=== PATIENT | male | born 1960 | race Caucasian/White ===

== ENCOUNTER 2019-07-06 12:17 | Emergency (ER) | payer OTHER ==
[2019-07-06 12:43] LABS: ABS Basophils 0.1 10^3/ul (0-0.2); ABS Eosinophils 0.2 10^3/ul (0-0.6); ABS Lymphocytes 1.5 10^3/ul (1.0-4.8); ABS Monocytes 0.4 10^3/ul (0-0.8); ABS Neutrophils 3.9 10^3/ul (1.5-7.7); Hematocrit 43 % (42-52); Hemoglobin 15.1 g/dL (14.0-18.0); Lymphocyte % 24.7 %; Mean Corpuscular HGB Conc 36 g/dL (31-36); Mean Corpuscular Hemoglobin 31 pg (27-31); Mean Corpuscular Volume 87 fL (80-94); Platelet Count 171 10^3/uL (150-450); Red Blood Count 4.88 10^6 /uL (4.18-5.48); Red Cell Distribution Width 13 % (10-15); White Blood Count 6.1 10^3/uL (3.5-10.8)
--- OUTSIDE RECORDS SUMMARY | 2019-07-06 12:46 | XMS REPORT | Continuity of Care Document ---
:1960 External Reference #:[id number] Author Name Viry Roberson NP Address [address] [place] [address] Care Team Providers Name Role Phone Enzo Malone MD - Family Medicine Care Team Information Hanger Off Problems Description No Information Available Social History Type Date Description Comments Sex Male Tobacco Use Start: Unknown Never Smoked Cigarettes Smoking Status Reviewed: 04/19/19 Never Smoked Cigarettes ETOH Use Current Alcohol Use - 1-3 Days A Week. Recreational Drug Use Never Used Drugs Allergies, Adverse Reactions, Alerts Active Allergies Reaction Severity Comments Date Cephalosporins 04/19/2019 Penicillin 04/19/2019 sulfa 04/19/2019 Erythromycin 04/19/2019 Medications Active Medications SIG Qnty Indications Ordering Provider Date Aspirin 81 daily Unknown 81mg Tablets Irbesartan 1 by mouth every Unknown 75mg Tablets day Omeprazole 1 by mouth every Unknown 40mg Capsules day Tamsulosin HCL 1 by mouth every Unknown 0.4mg day Capsules Meloxicam 1 by mouth daily Unknown 15mg Tablets as needed with food Trazodone HCL 1 by mouth every Unknown 50mg day Tablets History Medications Oral Appliance rdi of 11.4 Jono Harvey M.D. 06/04/2019 - 06/04/2019 Oral Analgesic Maximum rdi of 11.4 Jono Harvey M.D. 06/04/2019 - 06/04 Strength 20% Gel Immunizations Description No Information Available Vital Signs Date Vital Result Comment 06/04/2019 11:21am Weight 255.00 lb Height 74 inches 6'2" BMI (Body Mass Index) 32.7 kg/m2 BP Systolic 128 mmHg BP Diastolic 78 mmHg Heart Rate 88 /min O2 % BldC Oximetry 97 % Body Temperature 98.2 F Pain Level 0 04/19/2019 2:03pm Weight 255.00 lb Height 74 inches 6'2" BMI (Body Mass Index) 32.7 kg/m2 BP Systolic 143 mmHg BP Diastolic 87 mmHg Heart Rate 78 /min O2 % BldC Oximetry 96 % Body Temperature 97.2 F Felt Score 7 Neck Circumference in inches 17.5 Pain Level 0 Results Description No Information Available Procedures Date Code Description Status 05/16/2019 76936 Sleep Staging 4Or More Para Completed Medical Devices Description No Information Available Encounters Type Date Location Provider Dx Diagnosis Office Visit 06/04/2019 Main Office Viry Roberson G47.33 Obstructive sleep 11:15a WEIGHT CHECKER apnea (adult) (pediatric) Office Visit 04/19/2019 Main Office Shai Esteves M.D R06.83 Snoring 1:30p G47.30 Sleep apnea, unspecified G47.00 Insomnia, unspecified E66.9 Obesity, unspecified Assessments Date Code Description Provider 06/04/2019 G47.33 Obstructive sleep apnea (adult) Viry Roberson NP (pediatric) 05/16/2019 G47.33 Obstructive sleep apnea (adult) Sleep Lab - Shai Esteves MD (pediatric) 04/19/2019 R06.83 Snoring Shai Esteves M.D 04/19/2019 G47.30 Sleep apnea, unspecified Shai Esteves M.D 04/19/2019 G47.00 Insomnia, unspecified Shai Esteves M.D 04/19/2019 E66.9 Obesity, unspecified Shai Esteves M.D Plan of Treatment No Information Available Functional Status Description No Information Available Mental Status Description No Information Available Referrals Refer to Reason for Referral Status Appt Date Jono Harvey M.D. NO AUTH REQ FOR PSG Created [address] [place] [address] [phone]
--- OUTSIDE RECORDS SUMMARY | 2019-07-06 12:46 | XMS REPORT | Continuity of Care Document ---
:1960 External Reference #:[id number] Author Name Viry Roberson NP (transmitted by agent of provider Shonda Vargas) Address [address] [place] [address] Care Team Providers Name Role Phone Enzo Malone MD - Family Medicine Care Team Information Register Of Deeds Problems Description No Information Available Social History [...] by mouth every Unknown 50mg day Tablets Immunizations Description No Information Available Vital Signs [...] Oximetry 96 % Body Temperature 97.2 F Myton Score 7 Neck Circumference in inches 17.5 Pain Level 0 Results Description No Information Available Procedures Date Code Description Status 05/16/2019 44983 Sleep Staging 4Or More Para Completed Medical Devices Description No Information Available Encounters Type Date Location Provider Dx Diagnosis Office Visit 04/19/2019 1:30p Main Office Shai Esteves M.D R06.83 Snoring G47.30 Sleep apnea, unspecified G47.00 Insomnia, unspecified E66.9 Obesity, unspecified Assessments Date Code Description Provider 05/16/2019 G47.33 Obstructive sleep apnea (adult) Sleep [...] M.D. NO AUTH REQ FOR PSG Created [address] [place], [place] [id number] [phone]
[2019-07-06 13:01] LABS: Albumin 4.2 g/dL (3.2-5.2); Albumin/Globulin Ratio 1.8 (1-3); BUN/Creatinine Ratio 16.3 (8-20); Calcium 8.9 mg/dL (8.6-10.3); EGFR African American 94.1 (>60); EGFR Non-African American 77.8 (>60); Globulin 2.4 g/dL (2-4); Potassium 3.8 mmol/L (3.5-5.0); Total Bilirubin 1.5 mg/dL (0.2-1.0); Total Protein 6.6 g/dL (6.4-8.9)
[2019-07-06 13:02] LABS: Troponin I 0.01 ng/mL (<0.03)
[2019-07-06 13:06] LABS: INR 1.06 (0.82-1.09)
[2019-07-06] MEDS ORDERED: Nitroglycerin TAB 0.4 MG* 0.4 MG TAB SL ONE (15:54)
[2019-07-06] MEDS ORDERED: Aspirin 81 mg CHEW TAB* 81 MG TAB.CHEW PO ONE (15:54)
--- NOTE | 2019-07-06 15:54 | ED ---
HPI Chest Pain - HPI Summary HPI Summary: Patient is a 59 y/o M presenting to [facility] with complaints of chest pain that onset around 0930 07/06/19 while sitting in a meeting. He states that the meeting was not stressful. Patient characterizes the initial chest sensation as "raspy" . When he stood up and ambulated, he states that he experienced chest tightness and squeezing. Pain is still present. He states that the pain temporarily resolved while in [facility] ED, but when he ambulated, CP onset again. He notes previous episodes of CP but states that this CP is different. Patient denies SOB but states that his breathing feels tight. No nausea, diaphoresis noted. Patient took 81 mg ASA this morning. Last cardiac stress test was around 1.5 - 2 years ago. Hx of HTN noted, but no cardiac disease otherwise noted. FMHx of cardiac disease in father is noted, patient states that father had first ND in 50s. No PMHx of blood clots noted. No recent travel, pain/swelling in legs noted. PMHx of GERD for which the patient is on omeprazole. He is a non-smoker. Home medications and allergies are reviewed. - History of Current Complaint Chief Complaint: EDChestPainROMI Time Seen by Provider: 07/06/19 15:32 Hx Obtained From: Patient Onset/Duration: Started Hours Ago, Still Present Timing: Lasting Hours Current Severity: Mild Pain Intensity: 2 Pain Scale Used: 0-10 Numeric Character: Pressure/Squeezing, Tightness Aggravating Factor(s): Movement Associated Signs and Symptoms: Positive: Chest Pain, Other: - positive - tight breathing. Negative: Shortness of Breath, Diaphoresis, Nausea, Calf Pain/ Swelling - Allergy/Home Medications Allergies/Adverse Reactions: Allergies Allergy/AdvReac Type Severity Reaction Status Date / Time amoxicillin Allergy Unknown Verified 07/06/19 16:01 Reaction Details ampicillin Allergy Unknown Verified 07/06/19 16:01 Reaction Details cefaclor [From Ceclor] Allergy Anaphylatic Verified 07/06/19 16:01 Shock erythromycin base Allergy Unknown Verified 07/06/19 16:01 Reaction Details mold Allergy Unknown Verified 07/06/19 16:01 Reaction Details Penicillins Allergy Unknown Verified 07/06/19 16:01 Reaction Details Sulfa (Sulfonamide Allergy Unknown Verified 07/06/19 16:01 Antibiotics) Reaction Details sulfamethoxazole Allergy Rash Verified 07/06/19 16:01 [From Bactrim] trimethoprim [From Bactrim] Allergy Rash Verified 07/06/19 16:01 dust Allergy Unknown Uncoded 07/08/18 10:33 Reaction Details PMH/Surg Hx/FS Hx/Imm Hx Endocrine/Hematology History: Reports: Hx Anticoagulant Therapy - He takes 81 mg ASA a day., Hx Diabetes - He states he is pre-diabetic. Denies: Hx Thyroid Disease Cardiovascular History: Reports: Hx Angina - ATYPICAL LEFT UPPER CHEST, Hx Hypercholesterolemia, Hx Hypertension Denies: Hx Congestive Heart Failure, Hx Deep Vein Thrombosis, Hx Myocardial Infarction, Hx Pacemaker/ICD Respiratory History: Reports: Hx Asthma Denies: Hx Chronic Obstructive Pulmonary Disease (COPD), Hx Lung Cancer, Hx Pneumonia, Hx Pulmonary Embolism GI History: Reports: Hx Gastroesophageal Reflux Disease Denies: Hx Gall Bladder Disease, Hx Gastrointestinal Bleed, Hx Ulcer, Hx Urosepsis History: Denies: Hx Kidney Stones, Hx Renal Disease Neurological History: Denies: Hx Dementia, Hx Migraine, Hx Seizures, Hx Transient Ischemic Attacks (TIA) Psychiatric History: Denies: Hx Anxiety, Hx Depression, Hx Schizophrenia, Hx Bipolar Disorder Infectious Disease History: No Infectious Disease History: Denies: History Other Infectious Disease, Traveled Outside the [place] in Last 30 Days - Family History Known Family History: Positive: Cardiac Disease - 7 [place] in his father with the first one before age 55., Diabetes, Other - Thyroid Disease Family History: CAD in 50's. - Social History Alcohol Use: Occasionally Alcohol Amount: 2X MONTH Hx Substance Use: No Substance Use Type: Reports: None Smoking Status (MU): Never Smoked Tobacco Have You Smoked in the Last Year: Yes Review of Systems Negative: Skin Diaphoresis Positive: Chest Pain Respiratory: Other - positive - tight breathing Negative: Shortness Of Breath Negative: Nausea Negative: Myalgia - BLE, Edema - BLE All Other Systems Reviewed And Are Negative: Yes Physical Exam - Summary Physical Exam Summary: Constitutional: Well-developed, Well-nourished, Alert. (-) Distressed Skin: Warm, Dry HENT: Normocephalic; Atraumatic Eyes: Conjunctiva normal Neck: Musculoskeletal ROM normal neck. (-) JVD, (-) Stridor, (-) Tracheal deviation Cardio: Rhythm regular, rate normal, Heart sounds normal; Intact distal pulses; Radial pulses are 2+ and symmetric. (-) Murmur Pulmonary/Chest wall: Effort normal. (-) Respiratory distress, (-) Wheezes, (-) Rales Abd: Soft, (-) tenderness, (-) Distension, (-) Guarding, (-) Rebound Musculoskeletal: (-) Edema Lymph: (-) Cervical adenopathy Neuro: Alert, Oriented x3 Psych: Mood and affect Normal Triage Information Reviewed: Yes Vital Signs On Initial Exam: Initial Vitals Temp Pulse Resp BP Pulse Ox 98.2 F 92 18 166/57 100 07/06/19 12:24 07/06/19 12:24 07/06/19 12:24 07/06/19 12:24 07/06/19 12:24 Vital Signs Reviewed: Yes Procedures - Sedation Patient Received Moderate/Deep Sedation with Procedure: No Diagnostics - Vital Signs Vital Signs Temp Pulse Resp BP Pulse Ox 07/06/19 14:31 98.7 F 81 18 145/95 96 07/06/19 12:24 98.2 F 92 18 166/57 100 - Laboratory Lab Results: Lab Results 07/06/19 07/06/19 07/06/19 Range/Units 12:36 12:36 12:36 WBC 6.1 (3.5-10.8) 10^3/uL RBC 4.88 (4.18-5.48) 10^6 /uL Hgb 15.1 (14.0-18.0) g/dL Hct 43 (42-52) % MCV 87 (80-94) fL MCH 31 (27-31) pg MCHC 36 (31-36) g/dL RDW 13 (10-15) % Plt Count 171 (150-450) 10^3/uL MPV 8.0 (7.4-10.4) fL Neut % (Auto) 63.5 % Lymph % (Auto) 24.7 % [place] % (Auto) 6.4 % Eos % (Auto) 4.0 % Baso % (Auto) 1.4 % Absolute Neuts (auto) 3.9 (1.5-7.7) 10^3/ul Absolute Lymphs (auto) 1.5 (1.0-4.8) 10^3/ul Absolute Monos (auto) 0.4 (0-0.8) 10^3/ul Absolute Eos (auto) 0.2 (0-0.6) 10^3/ul Absolute Basos (auto) 0.1 (0-0.2) 10^3/ul Absolute Nucleated RBC 0.0 10^3/ul Nucleated RBC % 0.0 INR (Anticoag Therapy) 1.06 (0.82-1.09) Sodium 138 (135-145) mmol/L Potassium 3.8 (3.5-5.0) mmol/L Chloride 107 (101-111) mmol/L Carbon Dioxide 27 (22-32) mmol/L Anion Gap 4 (2-11) mmol/L BUN 16 (6-24) mg/dL Creatinine 0.98 (0.67-1.17) mg/dL Est GFR ( Amer) 94.1 (>60) Est GFR (Non-Af Amer) 77.8 (>60) BUN/Creatinine Ratio 16.3 (8-20) Glucose 141 H (70-100) mg/dL Calcium 8.9 (8.6-10.3) mg/dL Total Bilirubin 1.50 H (0.2-1.0) mg/dL AST 50 H (13-39) U/L ALT 70 H (7-52) U/L Alkaline Phosphatase 131 H (34-104) U/L Troponin I 0.01 (<0.03) ng/mL Total Protein 6.6 (6.4-8.9) g/dL Albumin 4.2 (3.2-5.2) g/dL Globulin 2.4 (2-4) g/dL Albumin/Globulin Ratio 1.8 (1-3) Result Diagrams: 07/06/19 12:36 07/06/19 12:36 Lab Statement: Any lab studies that have been ordered have been reviewed, and results considered in the medical decision making process. - Radiology CXR Radiology Interpretation Completed By: Radiologist Summary of Radiographic Findings: IMPRESSION: No acute cardiopulmonary process by radiograph. THIS REPORT WAS REVIEWED BY ED PHYSICIAN. - EKG 1217 Cardiac Rate: NL - rate of 89 BPM EKG Rhythm: Sinus Rhythm Summary of EKG Findings: EKG showed NSR with rate of 89 BPM, new T-wave flattening compared to prior EKG done 12/27/15. No STEMI. ED physician has reviewed and interpreted this EKG. Re-Evaluation - Re-Evaluation First Eval Re-Evaluation Time: 16:54 Comment: Patient had no relief in pain with nitro. Results of workup were discussed. He will be discharged to home and follow up with his aluminum pourer for cardiac stress test tomorrow. Chest Pain Course/Dx - Course Course Of Treatment: Patient is here with chest pain that occurred while he was sitting in a meeting. Patient's pain did go in the waiting room. Patient's pain returned when he walked to the [employer] machine. Upon arrival into the room , patient's overall well-appearing. Patient had an EKG which showed no ischemic changes. Patient had serial troponins which were negative. Patient has a well score of 0. Patient had a stress test 13 months ago which was negative. Patient was discharged with instructions to call his aluminum pourer the morning for possible repeat stress test. - Diagnoses Provider Diagnoses: Chest pain Discharge ED - Sign-Out/Discharge Documenting (check all that apply): Patient Departure - discharge - Discharge Plan Condition: Stable Disposition: HOME Patient Education Materials: Chest Pain (ED) Referrals: Delano Patino DO [Medical Doctor] - 1 Day Enzo Malone MD [Primary Care Provider] - Additional Instructions: Call your aluminum pourer tomorrow morning to set up a cardiac stress test. Please return to ED for severe chest pain, difficulty breathing, or other concerning symptoms. - Billing Disposition and Condition Condition: STABLE Disposition: Home - Attestation Statements Document Initiated by Garrison: Yes Documenting Scribe: ALAN SMART Provider For Whom Garrison is Documenting (Include Credential): SHEEBA MANCERA MD Scribe Attestation: IALAN, scribed for SHEEBA MANCERA MD on 07/06/19 at 1735. Scribe Documentation Reviewed: Yes Provider Attestation: The documentation as recorded by the ALAN escobedo accurately reflects the service I personally performed and the decisions made by me, SHEEBA MANCERA MD Status of Scribe Document: Viewed
[2019-07-06 17:11] VITALS: BP 148/98
== END 2019-07-06 17:09 | disposition home or self-care (01) ==
LOC: ED 12:17
DX: R07.89 Other chest pain (principal); R73.03 Prediabetes; K21.9 Gastro-esophageal reflux disease without esophagitis; Z79.82 Long term (current) use of aspirin; Z88.1 Allergy status to other antibiotic agents; Z88.0 Allergy status to penicillin; Z88.2 Allergy status to sulfonamides; Z91.09 Other allergy status, other than to drugs and biological substances; Z82.49 Family history of ischemic heart disease and other diseases of the circulatory system; Z83.3 Family history of diabetes mellitus; Z83.49 Family history of other endocrine, nutritional and metabolic diseases
CPT/HCPCS: 36415; 71046; 80053; 84484; 85025; 85610; 93005; 99283; A9270-GY

== ENCOUNTER 2019-07-22 17:31 | Emergency (ER) | payer OTHER ==
--- NOTE | 2019-07-22 18:00 | ED ---
HPI Chest Pain - HPI Summary HPI Summary: 59-year-old male with a significant past medical history of newly diagnosed atrial flutter (was cardioverted to NSR) one week ago who is on metoprolol and Eliquis presents to the emergency department today complaining of "crushing" sternal chest pain which began at approximately 12:00 this date. Patient states he was at rest when his symptoms began and pain has remained constant and not evolving since its start. Patient denies associated lightheadedness, diaphoresis, shortness of breath, changes in vision, abdominal pain, arm pain, jaw pain. Patient states his pain is made worse with deep breaths and is made better by leaning forward or sitting upright. Patient denies use of chronic steroids or past medical history of diabetes. Patient is alert and oriented at this time. Patient denies recent fevers, abdominal pain, rash, pain with urination, nausea, vomiting, diarrhea. Patient denies recent recreation drug use or alcohol use. Stress test performed approximately one year ago. Echocardiogram done most recent admission. Patient's pbx supervisor is Dr. Patino. - History of Current Complaint Chief Complaint: EDChestPainROMI Time Seen by Provider: 07/22/19 17:46 Hx Obtained From: Patient Onset/Duration: Started Hours Ago Timing: Constant Initial Severity: Moderate Current Severity: Moderate Pain Intensity: 5 Pain Scale Used: 0-10 Numeric Chest Pain Location: Mid Sternal Chest Pain Radiates: No Character: Crushing Alleviating Factor(s): Position - Allergy/Home Medications Allergies/Adverse Reactions: Allergies Allergy/AdvReac Type Severity Reaction Status Date / Time amoxicillin Allergy Unknown Verified 07/22/19 18:03 Reaction Details ampicillin Allergy Unknown Verified 07/22/19 18:03 Reaction Details cefaclor [From Ceclor] Allergy Anaphylatic Verified 07/22/19 18:03 Shock erythromycin base Allergy Unknown Verified 07/22/19 18:03 Reaction Details mold Allergy Unknown Verified 07/22/19 18:03 Reaction Details Penicillins Allergy Unknown Verified 07/22/19 18:03 Reaction Details Sulfa (Sulfonamide Allergy Unknown Verified 07/22/19 18:03 Antibiotics) Reaction Details sulfamethoxazole Allergy Rash Verified 07/22/19 18:03 [From Bactrim] trimethoprim [From Bactrim] Allergy Rash Verified 07/22/19 18:03 dust Allergy Unknown Uncoded 07/22/19 18:03 Reaction Details Home Medications: Home Medications Esomeprazole(NF) [NexIUM(NF)] 40 mg PO DAILY 12/27/15 [History Confirmed ] Tamsulosin CAP* [Flomax CAP*] 0.4 mg PO DAILY 12/27/15 [History Confirmed ] Multivit-Minerals/Folic Acid [Multi Adult Gummies] 1 chw PO DAILY 12/29/15 [ History Confirmed 07/22/19] Apixaban* [Eliquis*] 5 mg PO BID 07/15/19 [History Confirmed 07/22/19] Metoprolol Succinate 50 mg PO BID 07/15/19 [History Confirmed 07/22/19] traZODone TAB* [Desyrel TAB*] 50 - 150 mg PO BEDTIME 07/15/19 [History Confirmed 07/22/19] Omeprazole (Nf) [Prilosec (NF)] 40 mg PO DAILY 07/22/19 [History Confirmed 07/22] PMH/Surg Hx/FS Hx/Imm Hx Endocrine/Hematology History: Reports: Hx Anticoagulant Therapy - He takes 81 mg ASA a day., Hx Diabetes - He states he is pre-diabetic. Denies: Hx Thyroid Disease Cardiovascular History: Reports: Hx Angina - ATYPICAL LEFT UPPER CHEST, Hx Hypercholesterolemia, Hx Hypertension Denies: Hx Congestive Heart Failure, Hx Deep Vein Thrombosis, Hx Myocardial Infarction, Hx Pacemaker/ICD Respiratory History: Reports: Hx Asthma Denies: Hx Chronic Obstructive Pulmonary Disease (COPD), Hx Lung Cancer, Hx Pneumonia, Hx Pulmonary Embolism GI History: Reports: Hx Gastroesophageal Reflux Disease Denies: Hx Gall Bladder Disease, Hx Gastrointestinal Bleed, Hx Ulcer, Hx Urosepsis History: Denies: Hx Kidney Stones, Hx Renal Disease Sensory History: Reports: Hx Hearing Aid Denies: Hx Contacts or Glasses Opthamlomology History: Denies: Hx Contacts or Glasses Neurological History: Denies: Hx Dementia, Hx Migraine, Hx Seizures, Hx Transient Ischemic Attacks (TIA) Psychiatric History: Denies: Hx Anxiety, Hx Depression, Hx Schizophrenia, Hx Bipolar Disorder Infectious Disease History: No Infectious Disease History: Denies: History Other Infectious Disease, Traveled Outside the [place] in Last 30 Days - Family History Known Family History: Positive: Cardiac Disease - 7 [place] in his father with the first one before age 55., Diabetes, Other - Thyroid Disease Family History: CAD in 50's. - Social History Alcohol Use: Occasionally Alcohol Amount: 2X MONTH Hx Substance Use: No Substance Use Type: Reports: None Smoking Status (MU): Never Smoked Tobacco Have You Smoked in the Last Year: Yes Review of Systems Constitutional: Negative Eyes: Negative ENT: Negative Positive: Chest Pain Respiratory: Negative Gastrointestinal: Negative Genitourinary: Negative Musculoskeletal: Negative Skin: Negative Positive: Headache Psychological: Normal All Other Systems Reviewed And Are Negative: Yes Physical Exam Triage Information Reviewed: Yes Vital Signs On Initial Exam: Initial Vitals Temp Pulse Resp BP Pulse Ox 97.7 F 67 18 157/88 100 07/22/19 17:35 07/22/19 17:35 07/22/19 17:35 07/22/19 17:35 07/22/19 17:35 Vital Signs Reviewed: Yes Appearance: Positive: Well-Appearing, No Pain Distress, Well-Nourished Skin: Positive: Warm, Skin Color Reflects Adequate Perfusion Eyes: Positive: EOMI, CLAY ENT: Positive: Hearing grossly normal Respiratory/Lung Sounds: Positive: Clear to Auscultation, Breath Sounds Present Cardiovascular: Positive: RRR, S1, S2 Abdomen Description: Positive: Nontender, Soft Bowel Sounds: Positive: Present Musculoskeletal: Positive: Strength/ROM Intact Neurological: Positive: Sensory/Motor Intact, Alert, Oriented to Person Place, Time, Normal Gait, Facial Symmetry, Speech Normal Psychiatric: Positive: Normal, Affect/Mood Appropriate AVPU Assessment: Alert Procedures - Sedation Patient Received Moderate/Deep Sedation with Procedure: No Diagnostics - Vital Signs Vital Signs Temp Pulse Resp BP Pulse Ox 07/22/19 17:35 97.7 F 67 18 157/88 100 - Laboratory Result Diagrams: 07/22/19 17:49 07/22/19 17:49 Lab Statement: Any lab studies that have been ordered have been reviewed, and results considered in the medical decision making process. Chest Pain Course/Dx - Course Course Of Treatment: Patient was evaluated in the emergency department today for chest pain. Patient seen and examined. Vitals stable. Patient afebrile. EKG was done promptly which shows no evidence of STEMI. Normal sinus rhythm at a rate of 71 bpm. Normal NH and QTc interval. There is T-wave inversion in lead 3. EKG is unchanged compared to prior done following patient's cardioversion on 07/15/2019. HEART score: 4. Initial troponin resulted as 0.00. Serial troponins were deemed unnecessary for further evaluation due to patient being symptomatic for approximately 6 hours. Patient's pbx supervisor, Dr. Patino was consulted at 1834 for disposition of the patient. This patient is known to him, pbx supervisor, Dr. Patino states the patient has a normal EKG and negative troponin and was recently discharged from hospital and believes a decision can be made by the patient to either be admitted for stress echocardiogram or to be discharged with outpatient follow-up. Chest x-ray was done which showed no acute process. Laboratory studies returned showing mild leukocytosis with blood cell count of 12.1. There are no other significant changes with no evidence of anemia or electrolyte disturbance. Although there is mild leukocytosis there is no fever and patient is asymptomatic for other infectious pathologies at this time. Myocarditis, endocarditis, pericarditis were considered however thought unlikely due to lack of fever, murmur, tachycardia. This is discussed with the patient that he may stay for admission with further workup or follow-up as an outpatient. Patient chose to return to home to see Dr. Patino in the outpatient setting. Patient was discharged with outpatient follow-up - Chest Pain Differential Diagnosis/HQI/PQRI: Acute [place], ACS, Angina, Pulmonary Embolism - Diagnoses Provider Diagnoses: Atypical chest pain - Provider Notifications Discussed Care Of Patient With: Delano Patino - believes the patient is not having concerning acute medical pathology at this time. He believes patient is fit for outpatient follow-up in his clinic. Discharge ED - Sign-Out/Discharge Documenting (check all that apply): Patient Departure - Discharge Plan Condition: Stable Disposition: HOME Patient Education Materials: Chest Pain (ED) Referrals: Delano Patino DO [Medical Doctor] - 3 Days Enzo Malone MD [Primary Care Provider] - Additional Instructions: You were seen in the emergency department today due to chest pain. An EKG, lab work, x-ray was done which showed no evidence of acute process requiring intervention at this time. Please follow-up with Dr. Patino in 2-3 days for further evaluation and management of your symptoms. Although your workup returned negative today I am unable to be certain if your symptoms are cardiac in origin. Please return to the emergency department immediately if you develop any new or worsening symptoms. - Billing Disposition and Condition Condition: STABLE Disposition: Home - Attestation Statements Provider Attestation: I was available for consultation for this patient. I did not evaluate the patient or participate in any medical decision making or disposition decisions unless I am specifically named in the chart as having consulted on the patient. If I have consulted on the patient, please see my own ED note on the patient encounter. Zulema Ambrocio MD
--- OUTSIDE RECORDS SUMMARY | 2019-07-22 18:04 | XMS REPORT | Continuity of Care Document ---
:1960 External Reference #:[id number] Author Name Adrienne Graham Care Team Providers Name Role Phone Enzo Malone MD - Family Medicine Care Team Information Legal File Clerk Problems Description No Information Available Social History Type Date Description Comments Sex Unknown ETOH Use Drinks Alcoholic Beverages Occasionally Tobacco Use Start: Unknown Patient has never smoked Smoking Status Reviewed: 05/14/18 Patient has never smoked Allergies, Adverse Reactions, Alerts Active Allergies Reaction Severity Comments Date Ampicillin 05/08/2018 Erythromycin 05/08/2018 Sulfa Antibiotics 05/08/2018 Bactrim 06/17/2018 Medications Active Medications SIG Qnty Indications Ordering Provider Date Aspir-81 1 by mouth every 30tabs Delano Patino, 05/14/2018 81mg Tablets day DO FACC Esomeprazole 1 by mouth every Unknown Magnesium day 40mg Capsules Irbesartan 1 by mouth every Unknown 75mg Tablets day Meloxicam 1 by mouth every Unknown 15mg Tablets day Tamsulosin HCL 1 by mouth every Unknown 0.4mg day Capsules Daily Vitamins a directed Unknown Tablets Doxycycline Hyclate take 1 tablet by Unknown mouth twice a day 100mg Tablets for 10 days Immunizations Description No Information Available Vital Signs Date Vital Result Comment 05/14/2018 3:31pm Height 74 inches 6'2" Weight 253.00 lb with shoes Heart Rate 76 /min BP Systolic 128 mmHg rue reg cuff BP Diastolic 78 mmHg rue reg cuff BP Systolic Sitting 126 mmHg lue reg cuff BP Diastolic Sitting 80 mmHg lue reg cuff BP Systolic Standing 116 mmHg BP Diastolic Standing 74 mmHg BMI (Body Mass Index) 32.5 kg/m2 Ejection Fraction no echo rs Results Description No Information Available Procedures Description No Information Available Medical Devices Description No Information Available Encounters Description No Information Available Assessments Description No Information Available Plan of Treatment Future Appointment(s):07/09/2019 2:40 pm - Delano Patino DO FAC at [facility]05/14/2018 - Delano Patino DO FACCR07.9 Chest pain, unspecifiedComments:Your palpitations are related to PVC's (extra heart beats from the bottom of the heart). Your PVC's seem to be harmless. If they cause more trouble you can have Dr. Malone try a beta-ezequiel.Follow up:PRNI49.3 Ventricular premature rcluhrkoifggozX87 Essential (primary) eroknenrqebiL45.8 Other ioumixnB87.32 Body mass index (BMI) 32.0-32.9, adult Functional Status Description No Information Available Mental Status Description No Information Available Referrals Description No Information Available
--- OUTSIDE RECORDS SUMMARY | 2019-07-22 18:04 | XMS REPORT | Continuity of Care Document ---
:1960 External Reference #:[id number] Author Name Delano Patino, DO FACC (transmitted by agent of provider Ana Patel) Address [address] [place] [address] Care Team Providers Name Role Phone Enzo Malone MD - Family Medicine Care Team Information Stock Speculator [phone] Problems Description No Information Available Social History Type Date Description Comments Sex Unknown ETOH Use Drinks Alcoholic Beverages Occasionally Tobacco Use Start: Unknown Patient has never smoked Smoking Status Reviewed: 07/14/19 Patient has never smoked Allergies, Adverse Reactions, Alerts Active Allergies Reaction Severity Comments Date Ampicillin 05/08/2018 Erythromycin 05/08/2018 Sulfa Antibiotics 05/08/2018 Bactrim 06/17/2018 Medications Active Medications SIG Qnty Indications Ordering Provider Date Metoprolol Succinate 1 by mouth twice 60tabs I48.92 Delano Patino, 07/14 ER daily DO FACC 50mg Tablets ER 24HR Eliquis 1 by mouth twice 60tabs Delano Patino, 07/13/2019 5mg Tablets a day DO FACC Esomeprazole 1 by mouth every Unknown Magnesium day 40mg Capsules DR Woodruff on hold Unknown 75mg Tablets Tamsulosin HCL 1 by mouth every Unknown 0.4mg day Capsules Daily Vitamins a directed Unknown Tablets Trazodone HCL 1-3 by mouth Unknown 50mg daily as needed Tablets History Medications Metoprolol Succinate 1 by mouth 60tabs I48.92 Delano Patino, 07/13/2019 - ER twice daily DO FACC 07/14/2019 25mg Tablets ER 24HR Immunizations Description No Information Available Vital Signs Date Vital Result Comment 07/14/2019 3:16pm Height 74 inches 6'2" Weight 250.00 lb with shoes Heart Rate 120 /min irreg BP Systolic 90 mmHg Lue reg cuff BP Diastolic 70 mmHg Lue reg cuff BP Systolic Sitting 110 mmHg Rue reg cuff BP Diastolic Sitting 80 mmHg Rue reg cuff BP Systolic Standing 110 mmHg Rue reg cuff BP Diastolic Standing 74 mmHg Rue reg cuff Respiratory Rate 18 /min BMI (Body Mass Index) 32.1 kg/m2 07/13/2019 4:12pm Height 74 inches 6'2" Weight 249.50 lb with shoes Heart Rate 138 /min BP Systolic Sitting 132 mmHg Rue reg cuff BP Diastolic Sitting 90 mmHg Rue reg cuff BP Systolic Standing 132 mmHg Rue reg cuff BP Diastolic Standing 100 mmHg Rue reg cuff Respiratory Rate 18 /min BMI (Body Mass Index) 32.0 kg/m2 Results Description No Information Available Procedures Date Code Description Status 07/14/2019 92749 EKG Tracing & Interpretation Completed 07/13/2019 59939 EKG Tracing & Interpretation Completed Medical Devices Description No Information Available Encounters Type Date Location Provider Dx Diagnosis Office Visit 07/13/2019 [facility] Delano Patino, I48.92 Unspecified atrial 4:00p [facility] DO FACC flutter I10 Essential (primary) hypertension Assessments Date Code Description Provider 07/14/2019 I48.92 Unspecified atrial flutter Delano Patino, DO FACC 07/13/2019 I48.92 Unspecified atrial flutter Delano Patino, DO FACC 07/13/2019 I10 Essential (primary) hypertension Delano Patino DO FACC Plan of Treatment Future Appointment(s):08/12/2019 10:00 am - Delano Patino DO FACC at [facility]07/19/2019 11:00 am - Delano Patino DO FACC at [facility] AT [facility]07/20/2019 10:00 am - [facility] ECHO Schedule at [facility]07/14/2019 - Delano Patino DO FACCI48.92 Unspecified atrial flutterNew Medication:Metoprolol Succinate ER 50 mg - 1 by mouth twice dailyNew Orders:Echocardiogram, Transesophageal, Ordered: 07/14/19Cardioversion, Ordered : 07/14/19Comments:Stop taking irbesartan for nowIncrease metoprolol to 50 mg twice dailyFollow up:Schedule NADEEN Friday07/19/2019 at [facility] (use slot that Michelle España had been scheduled in). Keep echo appointment for now will cancel if needed on Friday. f/u 1 month with EKG Functional Status Description No Information Available Mental Status Description No Information Available Referrals Refer to Reason for Referral Status Appt Date Catrachito Allen MD ? typical atrial flutter, if so consider Created ablation [address] [place] [address] [phone]
[2019-07-22 18:06] LABS: ABS Basophils 0.1 10^3/ul (0-0.2); ABS Eosinophils 0.3 10^3/ul (0-0.6); ABS Lymphocytes 2.3 10^3/ul (1.0-4.8); ABS Monocytes 0.7 10^3/ul (0-0.8); ABS Neutrophils 8.7 10^3/ul (1.5-7.7); Eosinophil % 2.7 %; Hematocrit 44 % (42-52); Hemoglobin 15.7 g/dL (14.0-18.0); Lymphocyte % 18.8 %; Mean Corpuscular HGB Conc 36 g/dL (31-36); Mean Corpuscular Hemoglobin 31 pg (27-31); Mean Corpuscular Volume 86 fL (80-94); Mean Platelet Volume 8.6 fL (7.4-10.4); Platelet Count 215 10^3/uL (150-450); Red Blood Count 5.09 10^6 /uL (4.18-5.48); Red Cell Distribution Width 13 % (10-15); White Blood Count 12.1 10^3/uL (3.5-10.8)
[2019-07-22 18:17] LABS: INR 1.2 (0.82-1.09)
[2019-07-22] MEDS ORDERED: NS 0.9% 1000 ML** 1,000 ML IV ONE (18:17)
[2019-07-22 18:19] LABS: Albumin 4.7 g/dL (3.2-5.2); Albumin/Globulin Ratio 1.8 (1-3); Calcium 9.4 mg/dL (8.6-10.3); EGFR African American 78.2 (>60); EGFR Non-African American 64.7 (>60); Globulin 2.6 g/dL (2-4); Potassium 3.8 mmol/L (3.5-5.0); Total Protein 7.3 g/dL (6.4-8.9)
[2019-07-22 19:33] VITALS: BP 138/88
== END 2019-07-22 19:32 | disposition home or self-care (01) ==
LOC: ED 17:31
DX: R07.89 Other chest pain (principal); I51.7 Cardiomegaly; D72.829 Elevated white blood cell count, unspecified; R73.03 Prediabetes; I10 Essential (primary) hypertension; K21.9 Gastro-esophageal reflux disease without esophagitis; Z79.82 Long term (current) use of aspirin; Z79.01 Long term (current) use of anticoagulants; Z88.1 Allergy status to other antibiotic agents; Z88.0 Allergy status to penicillin; Z88.2 Allergy status to sulfonamides; Z91.048 Other nonmedicinal substance allergy status; Z82.49 Family history of ischemic heart disease and other diseases of the circulatory system; Z83.3 Family history of diabetes mellitus; Z83.49 Family history of other endocrine, nutritional and metabolic diseases
CPT/HCPCS: 36415; 71046; 80053; 84484; 85025; 85610; 93005; 96360; 99282